=== PATIENT | female | born 1990 | race African-American/Black ===

== ENCOUNTER 2023-05-15 12:17 | Emergency (ER) | payer MEDICAID, OTHER ==
[~2023-05-15] VITALS: Ht 170.2 cm; Wt 147.5 kg
[2023-05-15 15:19] VITALS: BP 141/84; PULSE 97; RESP 16; TEMP 96.4; O2SAT 96
[2023-05-15] MEDS ORDERED: cefTRIAXone SOD 1,000 MG VL IM ONE (15:30)
[2023-05-15] MEDS ORDERED: CIPR0.3S67 OP (15:33)
[2023-05-15] MEDS ORDERED: CLIN300C70 PO (15:33)
[2023-05-15] MEDS ORDERED: IBUP-1456 PO (15:57)
== END 2023-05-15 16:16 | disposition home or self-care (01) ==
LOC: ER 12:17
DX: H10.32 Unspecified acute conjunctivitis, left eye (principal); L73.9 Follicular disorder, unspecified
CPT/HCPCS: 96372; 99283; J0696